=== PATIENT | female | born 1990 | race Caucasian/White ===

== ENCOUNTER 2018-05-29 23:26 | Emergency (ER) | payer OTHER ==
[2018-05-30 00:06] LABS: PLATELET COUNT 311 10^3/uL (150-400)
--- NOTE | 2018-05-30 00:09 | EDPHY ---
H & P Stated Complaint: painful urination for 3 hours Time Seen by Provider: 05/30/18 00:09 HPI/ROS: HPI CHIEF COMPLAINT: Abdominal pain, and dysuria HISTORY OF PRESENT ILLNESS: 28-year-old female, otherwise healthy, no medical history presents emergency room with lower abdominal pain. She states this started around 8:00 p.m. Tonight progressively got worse. She now describes 10/ 10 lower abdominal pain. Mainly has localized pain in the lower abdomen and right lower quadrant. Additionally she reports dysuria and urinary frequency. She states she has had urinary tract infections in the past but nothing this severe. Denies fever, denies back pain, denies vomiting, denies diarrhea. Main complaint lower abdominal pain. Past Medical History: Denies significant medical history Past Surgical History: Breast augmentation Social History: Denies drugs alcohol tobacco. Family History: Noncontributory ROS REVIEW OF SYSTEMS: 10 Systems were reviewed and negative with the exception of the elements mentioned in the history of present illness. Exam Constitutional nontoxic no acute distress. triage nursing summary reviewed, vital signs reviewed, awake/alert. Eyes normal conjunctivae and sclera, EOMI, PERRLA. HENT normal inspection, atraumatic, moist mucus membranes, no epistaxis, neck supple/ no meningismus, no raccoon eyes. Respiratory clear to auscultation bilaterally, normal breath sounds, no respiratory distress, no wheezing. Cardiovascular rate normal, regular rhythm, no murmur, no edema, distal pulses normal. Gastrointestinal mild tender palpation suprapubic and right lower quadrant, no rebound, no guarding, normal bowel sounds, no distension, no pulsatile mass. Genitourinary no CVA tenderness. Musculoskeletal no midline vertebral tenderness, full range of motion, no calf swelling, no tenderness of extremities, no meningismus, good pulses, neurovascularly intact. Skin pink, warm, & dry, no rash, skin atraumatic. Neurologic awake, alert and oriented x 3, AAOx3, moves all 4 extremities equally, motor intact, sensory intact, CN II-XII intact, normal cerebellar, normal vision, normal speech. Psychiatric normal mood/affect. Heme/Lymph/Immune no lymphadenopathy. Differential Diagnosis: Differential diagnosis includes but is not limited to and in no particular order: Bowel obstruction, appendicitis, gallbladder disease, diverticulitis, colitis, enteritis, perforated viscus, gastritis, GERD , esophagitis, urinary tract infection, pyelonephritis, kidney stones Medical Decision Making: Plan for this patient IV establishment IV fluid bolus basic blood work, urinalysis, test, given her 10/10 lower abdominal pain and right lower quadrant pain on exam will proceed with CT scan abdomen pelvis with IV contrast rule out acute appendicitis. Re-evaluation: CT scan abdomen pelvis with IV contrast called to me by Dr. Victor. Negative for acute inflammatory process. Normal appendix. Patient's blood work reviewed The patient's urinalysis reviewed. Given the patient's urinalysis results and dysuria appears to be a UTI. IV rocephin given. Urine culture sent. Keflex and peridium for home. Return precautions discussed return emergency room for worsening abdominal pain , fever, vomiting. Patient is comfortable this plan. Return precautions discussed with patient return immerse in abdominal pain, fever, vomiting. Source: Patient - Personal History LMP (Females 10-55): 22-28 Days Ago Current Tetanus/Diphtheria Vaccine: Yes Current Tetanus Diphtheria and Acellular Pertussis (TDAP): Yes - Medical/Surgical History Hx Asthma: No Hx Chronic Respiratory Disease: No Hx Diabetes: No Hx Cardiac Disease: No Hx Renal Disease: No Hx Cirrhosis: No Hx Alcoholism: No Hx HIV/AIDS: No Hx Splenectomy or Spleen Trauma: No Other PMH: Panic attacks, PTSD, breast surgery - Social History Smoking Status: Never smoked Constitutional: Initial Vital Signs Temperature (C) 36.8 C 05/29/18 23:28 Heart Rate 93 05/29/18 23:28 Respiratory Rate 16 05/29/18 23:28 Blood Pressure 122/94 H 05/29/18 23:28 O2 Sat (%) 97 05/29/18 23:28 O2 Delivery Mode Room Air Allergies/Adverse Reactions: No Known Allergies Allergy (Verified 05/29/18 23:30) Home Medications: Medication Instructions Recorded Birthcontrol 05/29/18 Cephalexin [Keflex] 500 mg PO Q6H #28 cap 05/30/18 Phenazopyridine HCl [Pyridium] 200 mg PO TID #15 tab 05/30/18 Medical Decision Making - Data Points Laboratory Results: Laboratory Results 05/29/18 23:55 05/29/18 23:55 05/29/18 05/29/18 05/29/18 23:55 23:55 23:55 WBC 12.27 10^3/uL H 10^3/uL (3.80-9.50) RBC 4.70 10^6/uL 10^6/uL (4.18-5.33) Hgb 14.4 g/dL g/dL (12.6-16.3) Hct 41.6 % % (38.0-47.0) MCV 88.5 fL fL (81.5-99.8) MCH 30.6 pg pg (27.9-34.1) MCHC 34.6 g/dL g/dL (32.4-36.7) RDW 12.4 % % (11.5-15.2) Plt Count 311 10^3/uL 10^3/uL (150-400) MPV 10.6 fL fL (8.7-11.7) Neut % (Auto) 58.0 % % (39.3-74.2) Lymph % (Auto) 31.0 % % (15.0-45.0) [place] % (Auto) 6.6 % % (4.5-13.0) Eos % (Auto) 3.8 % % (0.6-7.6) Baso % (Auto) 0.4 % % (0.3-1.7) Nucleat RBC Rel Count 0.0 % % (0.0-0.2) Absolute Neuts (auto) 7.11 10^3/uL H 10^3/uL (1.70-6.50) Absolute Lymphs (auto) 3.80 10^3/uL H 10^3/uL (1.00-3.00) Absolute Monos (auto) 0.81 10^3/uL H 10^3/uL (0.30-0.80) Absolute Eos (auto) 0.47 10^3/uL H 10^3/uL (0.03-0.40) Absolute Basos (auto) 0.05 10^3/uL 10^3/uL (0.02-0.10) Absolute Nucleated RBC 0.00 10^3/uL 10^3/uL (0-0.01) Immature Gran % 0.2 % % (0.0-1.1) Immature Gran # 0.03 10^3/uL 10^3/uL (0.00-0.10) Sodium 139 mEq/L mEq/L (135-145) Potassium 4.5 mEq/L mEq/L (3.5-5.2) Chloride 107 mEq/L mEq/L (97-110) Carbon Dioxide 24 mEq/l mEq/l (22-31) Anion Gap 8 mEq/L mEq/L (6-14) BUN 19 mg/dL mg/dL (7-23) Creatinine 1.0 mg/dL mg/dL (0.6-1.0) Estimated GFR > 60 Glucose 90 mg/dL mg/dL (70-100) Calcium 9.7 mg/dL mg/dL (8.5-10.4) Beta HCG, Qual NEGATIVE Urine Color Urine Appearance Urine pH Ur Specific [place] Urine Protein Urine Ketones Urine Blood Urine Nitrate Urine Bilirubin Urine Urobilinogen Ur Leukocyte Esterase Urine RBC Urine WBC Ur Epithelial Cells Urine Bacteria Urine Glucose Urine Test 05/29/18 05/29/18 23:47 23:47 WBC RBC Hgb Hct MCV MCH MCHC RDW Plt Count MPV Neut % (Auto) Lymph % (Auto) [place] % (Auto) Eos % (Auto) Baso % (Auto) Nucleat RBC Rel Count Absolute Neuts (auto) Absolute Lymphs (auto) Absolute Monos (auto) Absolute Eos (auto) Absolute Basos (auto) Absolute Nucleated RBC Immature Gran % Immature Gran # Sodium Potassium Chloride Carbon Dioxide Anion Gap BUN Creatinine Estimated GFR Glucose Calcium Beta HCG, Qual Urine Color PALE YELLOW Urine Appearance CLEAR Urine pH 6.0 (5.0-7.5) Ur Specific [place] 1.003 (1.002-1.030) Urine Protein NEGATIVE (NEGATIVE) Urine Ketones NEGATIVE (NEGATIVE) Urine Blood 3+ H (NEGATIVE) Urine Nitrate NEGATIVE (NEGATIVE) Urine Bilirubin NEGATIVE (NEGATIVE) Urine Urobilinogen NEGATIVE EU EU (0.2-1.0) Ur Leukocyte Esterase 1+ H (NEGATIVE) Urine RBC 1-3 /hpf /hpf (0-3) Urine WBC 25-50 /hpf H /hpf (0-3) Ur Epithelial Cells TRACE /lpf /lpf (NONE-1+) Urine Bacteria TRACE /hpf H /hpf (NONE SEEN) Urine Glucose NEGATIVE (NEGATIVE) Urine Test NEGATIVE Medications Given: Discontinued Medications Ceftriaxone Sodium/Dextrose (Rocephin 1 Gm (Premix)) 50 mls @ 100 mls/hr IV EDNOW ONE PRN Reason: Protocol Stop: 05/30/18 00:43 Last Admin: 05/30/18 00:17 Dose: 50 mls Phenazopyridine HCl (Pyridium) 200 mg PO EDNOW ONE Stop: 05/30/18 00:16 Last Admin: 05/30/18 00:17 Dose: 200 mg Departure - Departure Disposition: Home, Routine, Self-Care Clinical Impression: Urinary tract infection Qualifiers: Urinary tract infection type: acute cystitis Hematuria presence: with hematuria Qualified Code(s): N30.01 - Acute cystitis with hematuria Condition: Good Instructions: Urinary Tract Infection in Women (ED) Additional Instructions: 1. Drink lots of fluids stay well-hydrated 2. Antibiotics as prescribed 3. Return emergency room if worsening abdominal pain, fever, vomiting Referrals: NONE *PRIMARY CARE P,. [Primary Care Provider] - As per Instructions Prescriptions: Cephalexin [Keflex] 500 mg PO Q6H #28 cap Phenazopyridine HCl [Pyridium] 200 mg PO TID #15 tab
[2018-05-30] MEDS ORDERED: PHENAZOPYRIDINE HCL 200 MG TAB PO ONE (00:15)
[2018-05-30] MEDS ORDERED: IOPAMIDOL (ISOVUE-300) 100 ML BTL ONE (00:24)
[2018-05-30 03:11] VITALS: BP 134/65
== END 2018-05-30 03:09 | disposition home or self-care (01) ==
DX: N30.01 Acute cystitis with hematuria (principal)
CPT/HCPCS: 96365; J0696; Q9967